=== PATIENT | female | born 1990 | race Two or more races ===

== ENCOUNTER 2025-07-29 08:44 | Emergency (ER) | payer OTHER ==
[~2025-07-29] VITALS: Ht 157.5 cm; Wt 79.1 kg
[2025-07-29 08:55] VITALS: BP 151/108; PULSE 85; RESP 18; TEMP 97.1; O2SAT 100
--- NOTE | 2025-07-29 12:40 | ED.PDOC ---
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 Patient states she saw her OBGYN in [place] 4 days ago and was told that her fetus had no heart rate. She states 4 days prior to that when she saw the OBGYN she did have a heart rate. She states she called the doctor's office today and they are still waiting for her D and C to be done, and told her that if she wants it done emergently she should go to the emergency room. Patient states that since the last 1 day she has had left shoulder and neck pain with numbness tingling going down her left arm. Patient does not want a spontaneous as she states she had a very bad episode last time and prefers to have a D&C done. 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 Patient denies any abdominal pain. Patient denies any injury. Denies any chest pain or shortness of breath. Denies any unilateral leg swelling. Chief Complaint: Time Seen by MD: 09:36 Allergies: Coded Allergies: NO KNOWN ALLERGIES (Unverified , 07/29/25) Past Medical History PAST MEDICAL HISTORY: Denies Surgical History: Denies all surgeries Social History Smoker: Non-Smoker Alcohol: Denies ETOH Use Drugs: Denies Drug Use All Other Systems: Reviewed and Negative Physical Exam General Appearance: No Apparent Distress, Normal HEENT: Normal ENT Inspection, Pharynx Normal, TMs Normal Neck: Full Range of Motion, Non-Tender, Normal, Normal Inspection Respiratory: Chest Non-Tender, Lungs Clear, No Accessory Muscle Use, No Respiratory Distress, Normal Breath Sounds Cardiovascular: No Edema, No JVD, No Murmur, No Gallop, Normal Peripheral Pulses, Regular Rate/Rhythm Breast Exam: Deferred Gastrointestinal: No Organomegaly, Non Tender, No Pulsatile Mass, Normal Bowel Sounds, Soft Genitalia: Deferred Pelvic: Deferred Rectal: Deferred Extremities: No calf tenderness, Normal capillary refill, Normal inspection, Normal range of motion, Non-tender, No pedal edema Musculoskeletal : Apperance: Normal Neurologic: Alert, finance consultant II-XII nml as Tested, No Motor Deficits, Normal Affect, Normal Mood, No Sensory Deficits Cerebellar Function: Normal Reflexes: Normal Skin: Dry, Normal Color, Warm Lymphatic: No Adenopathy Was a procedure done? 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 On my examination she is awake alert in no acute distress with no abdominal pain no no vaginal bleeding. She does report some pain to her neck muscles and points to her left side and numbness tingling down her left arm. Patient denies any injury. On examination neck pain and arm tingling seem consistent with radiculopathy. I advised her that a D and C's not available in the emergency room for routine cases. I did offer her blood work and ultrasound to evaluate the fetus to confirm that it had no heart rate but she refused. Partner at bedside who also understood. Advised him both that they should call the OBGYN office today to figure out what the delay in D&C appointment is. Both agreeable. They do not want any further testing done today and prefer to follow up with her OBGYN. Advised patient to return as needed to the emergency room. Time of 1ST Reevaluation: 12:00 Reevaluation 1ST: Unchanged Patient Education/Counseling: Diagnosis, Treatment Family Education/Counseling: Diagnosis, Treatment Departure 1 Departure Time of Disposition: 12:39 Impression: Primary Impression: Incomplete Disposition: HOME / SELF CARE / HOMELESS Condition: Stable Additional Instructions: Follow up with your OBGYN in 2-3 days. Return to the ER if symptoms worsen or persist. Please call your OBGYN today to determine what the delay is in scheduling a D&C. Discharged With: Self, Significant Other Critical Care Note Critical Care Time?: No Stability Stability form required: No Heart Score Heart Score: Heart Score Response (Comments) Value History N/A 0 EKG N/A 0 Age N/A 0 Risk Factors N/A 0 Troponin N/A 0 Total 0 ANGELES REDDY MD Jul 29, 2025 12:40
== END 2025-07-29 13:11 | disposition home or self-care (01) ==
LOC: ER 08:44
DX: O03.4 Incomplete spontaneous abortion without complication (principal); Z79.899 Other long term (current) drug therapy